=== PATIENT | female | born 2000 | race Caucasian/White ===

== ENCOUNTER 2021-04-23 22:25 | Emergency (ER) | payer BC ==
--- NOTE | 2021-04-23 22:56 | EDM.PDOC ---
ED HPI GENERAL MEDICAL PROBLEM - General Chief Complaint: General Stated Complaint: POSS LIVER PROBLEM Time Seen by Provider: 04/23/21 22:52 - History of Present Illness INITIAL COMMENTS - FREE TEXT/NARRATIVE: 20-year-old female presents the emergency room to have her liver checked. Patient is concerned about possible liver disease that she is getting some yellow spots in her eyes and some yellow pigment changes under her eyes. She has family back in [place] that are physicians that recommended she get this checked. Then 1 to be checked for liver function hepatitis mono. I advised him to be happy to check liver stuff everything else is a send out and would not do any good to check at this time. The patient has follow-up with an eye doctor coming up. The patient is here working for the summer. She has not had any signs of illness she has had her Covid vaccine and otherwise feels fine. - Related Data Allergies Allergy/AdvReac Type Severity Reaction Status Date / Time No Known Allergies Allergy Verified 04/23/21 22:56 Home Meds: Home Meds Metoprolol Succinate [Toprol Xl] 50 mg PO DAILY 04/23/21 [History] ED ROS GENERAL - Review of Systems Review Of Systems: See Below Constitutional: Reports: No Symptoms HEENT: Reports: Other (See HPI) Respiratory: Reports: No Symptoms Cardiovascular: Reports: No Symptoms Endocrine: Reports: No Symptoms GI/Abdominal: Reports: No Symptoms ED EXAM, GENERAL - Physical Exam Exam: See Below Exam Limited By: No Limitations General Appearance: Alert, No Apparent Distress Eye Exam: Bilateral Eye: Other (Possible yellowing of the sclera but only the inferior portions) Ears: Normal External Exam, Normal Canal, Hearing Grossly Normal, Normal TMs Nose: Normal Inspection, Normal Mucosa, No Blood Throat/Mouth: Normal Inspection, Normal Lips, Normal Teeth, Normal Gums, Normal Oropharynx, Normal Voice, No Airway Compromise Head: Atraumatic, Normocephalic Neck: Normal Inspection, Supple, Non-Tender, Full Range of Motion Respiratory/Chest: No Respiratory Distress, Lungs Clear, Normal Breath Sounds, No Accessory Muscle Use, Chest Non-Tender Cardiovascular: Normal Peripheral Pulses, Regular Rate, Rhythm, No Edema, No Gallop, No JVD, No Murmur, No Rub GI/Abdominal: Normal Bowel Sounds, Soft, Non-Tender, No Organomegaly, No Distention, No Abnormal Bruit, No Mass Course - Vital Signs Last Recorded V/S: Last Vital Signs Temp 35.8 C L 04/23/21 22:46 Pulse 67 04/23/21 22:46 Resp 19 04/23/21 22:46 BP 118/67 04/23/21 22:46 Pulse Ox 99 04/23/21 22:46 - Orders/Labs/Meds Orders: Active Orders 24 hr Category Date Time Status Potassium Chloride [Klor-Con M20] Med 04/24/21 00:29 Once 20 meq PO ONETIME ONE Labs: Laboratory Tests 04/23/21 04/23/21 Range/Units 23:20 23:20 Sodium 141 (136-145) mEq/L Potassium 3.4 L (3.5-5.1) mEq/L Chloride 104 (98-107) mEq/L Carbon Dioxide 28 (21-32) mEq/L Anion Gap 12.4 (5-15) BUN 14 (7-18) mg/dL Creatinine 0.9 (0.55-1.02) mg/dL Est Cr Clr Drug Dosing 91.79 mL/min Estimated GFR (MDRD) > 60 (>60) mL/min BUN/Creatinine Ratio 15.6 (14-18) Glucose 99 (70-99) mg/dL Calcium 8.8 (8.5-10.1) mg/dL Magnesium 2.2 (1.8-2.4) mg/dL Total Bilirubin 0.8 (0.2-1.0) mg/dL Direct Bilirubin 0.20 (0.0-0.2) mg/dl GGT 12 (5-55) U/L AST 13 L (15-37) U/L ALT 19 (14-59) U/L Alkaline Phosphatase 69 (46-116) U/L Total Protein 7.6 (6.4-8.2) g/dl Albumin 4.1 (3.4-5.0) g/dl Globulin 3.5 gm/dL Albumin/Globulin Ratio 1.2 (1-2) Monoscreen Negative (NEGATIVE) - Re-Assessments/Exams Free Text/Narrative Re-Assessment/Exam: 04/24/21 00:30 Lab look great would not pursue a liver work-up any further. I have relayed this information to the patient she agrees. She could have some pigment changes this could be sun exposure it is really hard to say at this point. Her potassium is a little low at 3.4 we will give 20 mEq of oral potassium at this time and then discharged home she is encouraged to push lots of fluids in the dry environment that she is working. Departure - Departure Time of Disposition: 00:31 Disposition: Home, Self-Care 01 Clinical Impression: Change in pigmented lesion of face - Discharge Information Referrals: PCP,Not In Area [Primary Care Provider] - Forms: ED Department Discharge Additional Instructions: And to the emergency room with any questions problems worsening symptoms. Push lots of fluids in this environment you require much more free water. Gatorade is also a good alternative. Sepsis Event Note (ED) - Evaluation Sepsis Screening Result: No Definite Risk - Focused Exam Vital Signs: Vital Signs Temp Pulse Resp BP Pulse Ox 04/23/21 22:46 35.8 C L 67 19 118/67 99 - My Orders Last 24 Hours: My Active Orders 04/24/21 00:29 Potassium Chloride [Klor-Con M20] 20 meq PO ONETIME ONE - Assessment/Plan Last 24 Hours: My Active Orders 04/24/21 00:29 Potassium Chloride [Klor-Con M20] 20 meq PO ONETIME ONE
[2021-04-24] MEDS ORDERED: Potassium Chloride 20 MEQ Tab.ER PO ONE (00:29)
== END 2021-04-24 00:56 | disposition home or self-care (01) ==
LOC: JD.ED 22:25
DX: L81.8 Other specified disorders of pigmentation (principal)
CPT/HCPCS: 36415; 80053; 82248; 82977; 83735; 86308; 99284; A9270; 99282